=== PATIENT | female | born 1990 | race Caucasian/White ===

== ENCOUNTER 2018-02-06 16:25 | Emergency (ER) | payer OTHER ==
[~2018-02-06] VITALS: Ht 167.6 cm; Wt 100.7 kg
[2018-02-06] MEDS ORDERED: PNEU16DI2 (16:59)
[2018-02-06] MEDS ORDERED: PRENATAL + DHA1 EAC1 (16:59)
== END 2018-02-06 22:07 | disposition home or self-care (01) ==
LOC: ER 16:25
DX: O21.0 Mild hyperemesis gravidarum (principal); Z34.01 Encounter for supervision of normal first pregnancy, first trimester

== ENCOUNTER 2018-06-07 17:09 | Outpatient (CLI) | payer OTHER ==
[~2018-06-07 17:09] MED LIST: PNEU16DI2; PRENATAL + DHA1 EAC1
== END 2018-06-08 11:39 | disposition home or self-care (01) ==
LOC: OBS/DEL 17:09
DX: O13.3 Gestational [pregnancy-induced] hypertension without significant proteinuria, third trimester (principal); Z34.03 Encounter for supervision of normal first pregnancy, third trimester

== ENCOUNTER 2018-06-30 22:20 | Outpatient (CLI) | payer OTHER ==
[2018-06-30] MEDS ORDERED: FOLIC ACID1 MG PO (23:09)
== END 2018-07-01 10:21 | disposition home or self-care (01) ==
LOC: OBS/DEL 22:20
DX: O60.03 Preterm labor without delivery, third trimester (principal); Z34.03 Encounter for supervision of normal first pregnancy, third trimester

== ENCOUNTER 2018-07-10 17:33 | Outpatient (CLI) | payer OTHER ==
[~2018-07-10 17:33] MED LIST changes: +FOLIC ACID1 MG PO
== END 2018-07-11 15:38 | disposition home or self-care (01) ==
LOC: OBS/DEL 17:33
DX: O13.3 Gestational [pregnancy-induced] hypertension without significant proteinuria, third trimester (principal); Z34.03 Encounter for supervision of normal first pregnancy, third trimester

== ENCOUNTER 2018-07-14 17:57 | Outpatient (CLI) | payer OTHER ==
[2018-07-16] MEDS ORDERED: ALDOMET500 MG PO (19:54)
== END 2018-07-15 17:22 | disposition home or self-care (01) ==
LOC: OBS/DEL 17:57
DX: O13.3 Gestational [pregnancy-induced] hypertension without significant proteinuria, third trimester (principal); Z34.03 Encounter for supervision of normal first pregnancy, third trimester

== ENCOUNTER 2018-07-16 17:35 | Inpatient (IN) | payer OTHER ==
[~2018-07-16] VITALS: Ht 167.6 cm; Wt 113.4 kg
[2018-07-16] MEDS ORDERED: ALDOMET500 MG PO (19:54)
== END 2018-07-19 19:20 | disposition home or self-care (01) | DRG 788 ==
LOC: LDR 17:35 → OB/GYN 17:35
PROVIDERS: ADMIT Obstetrics & Gynecology
PROC: 4A1HXCZ Monitoring of Products of Conception, Cardiac Rate, External Approach (ICD-10-PCS; 2018-07-16)
PROC: 10D00Z1 Extraction of Products of Conception, Low, Open Approach (ICD-10-PCS; principal; 2018-07-16 22:00)
DX: O76 Abnormality in fetal heart rate and rhythm complicating labor and delivery (principal); Z3A.38 38 weeks gestation of pregnancy; Z37.0 Single live birth